=== PATIENT | male | born 1945 | race Caucasian/White ===

== ENCOUNTER 2021-05-01 09:46 | Day surgery (SDC) | payer MEDICARE, OTHER ==
[~2021-05-01] VITALS: Ht 172.7 cm; Wt 59.6 kg
[~2021-05-01 09:46] MED LIST: CARV6.25; ELIQUIS5 M2
--- NOTE | 2021-05-01 10:07 | NUR ---
05/01/21 1007 Catherine Lanza TETRACAINE AND PLEDGET PLACED IN LEFT EYE BY [facility].G
== END 2021-05-01 11:25 | disposition home or self-care (01) ==
LOC: ORSCSDS 09:46
PROVIDERS: Ophthalmology
PROC: 08RK3JZ Replacement of Left Lens with Synthetic Substitute, Percutaneous Approach (ICD-10-PCS; principal; 2021-05-01 11:00)
DX: H25.13 Age-related nuclear cataract, bilateral (principal); I48.91 Unspecified atrial fibrillation; F17.210 Nicotine dependence, cigarettes, uncomplicated; Z79.01 Long term (current) use of anticoagulants; Z79.899 Other long term (current) drug therapy
CPT/HCPCS: J2001; J2250; J3010; J3301; J7040; V2632

== ENCOUNTER 2021-05-29 09:15 | Day surgery (SDC) | payer MEDICARE, OTHER ==
[~2021-05-29] VITALS: Ht 172.7 cm; Wt 58.5 kg
[~2021-05-29 09:15] MED LIST changes: -CARV6.25; +CARV6.25 PO; -ELIQUIS5 M2; +ELIQUIS5 M2 PO
== END 2021-05-29 11:05 | disposition home or self-care (01) ==
LOC: ORSCSDS 09:15
PROVIDERS: Ophthalmology
PROC: 08RJ3JZ Replacement of Right Lens with Synthetic Substitute, Percutaneous Approach (ICD-10-PCS; principal; 2021-05-29 10:30)
DX: H25.11 Age-related nuclear cataract, right eye (principal); I48.91 Unspecified atrial fibrillation; K21.9 Gastro-esophageal reflux disease without esophagitis; F17.210 Nicotine dependence, cigarettes, uncomplicated; Z79.01 Long term (current) use of anticoagulants; Z79.899 Other long term (current) drug therapy
CPT/HCPCS: J2001; J2250; J3010; J3301; J7040; V2632